=== PATIENT | female | born 1955 | race Caucasian/White ===

== ENCOUNTER 2020-09-06 11:18 | Emergency (ER) | payer MEDICAID ==
[~2020-09-06] VITALS: Ht 149.9 cm; Wt 43.8 kg
[2020-09-06 11:39] VITALS: BP 110/72
== END 2020-09-06 13:34 | disposition home or self-care (01) ==
LOC: ED 13:28
DX: J44.9 Chronic obstructive pulmonary disease, unspecified (principal); F32.9 Major depressive disorder, single episode, unspecified; Z76.0 Encounter for issue of repeat prescription
CPT/HCPCS: 99281

== ENCOUNTER → 2021-06-16 | Outpatient (CLI) | payer MEDICARE, OTHER ==
[~2021-06-16] MED LIST: ALBU18HF INH; ARIP15TA3 PO; BUDE10.2 INH; DONE5TAB7 PO; GABA300C PO; LEVO75TA5 PO; MULT-717 PO; VENL150C PO; VENL150C6 PO; VENL75TA2 PO
== END | disposition home or self-care (01) ==
LOC: STAR 13:57
PROVIDERS: ATTEND Internal Medicine
DX: Z01.818 Encounter for other preprocedural examination (principal); K62.5 Hemorrhage of anus and rectum; Z86.010 Personal history of colon polyps; Z20.822 Contact with and (suspected) exposure to COVID-19
CPT/HCPCS: 93005; U0003; U0005